=== PATIENT | female | born 1950 | race Caucasian/White ===

== ENCOUNTER → 2017-06-14 | Outpatient (CLI) | payer MEDICARE, OTHER | LOC: LENT 15:36 | DX: H92.12 Otorrhea, left ear (principal) ==

== ENCOUNTER → 2017-06-14 | Outpatient (CLI) | payer MEDICARE, OTHER ==
[2017-06-14 14:20] LABS: CREATININE 0.5 mg/dL (0.5-1.1)
== END | disposition disaster alternative care site (69) ==
LOC: GRAD 13:30
PROVIDERS: Otolaryngology
DX: G06.2 Extradural and subdural abscess, unspecified (principal); R60.0 Localized edema; Z98.890 Other specified postprocedural states
CPT/HCPCS: A9577